=== PATIENT | female | born 2000 | race Two or more races ===

== ENCOUNTER 2021-06-01 18:32 | Emergency (ER) | payer MEDICAID, OTHER ==
[~2021-06-01] VITALS: Ht 147.3 cm; Wt 46.7 kg
[2021-06-01 19:03] LABS: Urine Bacteria FEW /hpf (None Seen); Urine Blood 3+ /uL (Negative); Urine Specific Gravity 1.009 (1.001-1.035); Urine WBC 10 /hpf (0 - 5)
[2021-06-01 19:40] LABS: Alcohol, Urine < 3.0 mg/dL (0-10); Amphetamine Screen, Urine NEGATIVE (NEGATIVE); Barbiturate Scree,Urine NEGATIVE (NEGATIVE); Benzodiazephine Screen, Urine NEGATIVE (NEGATIVE); Cannabinoid Screen, Urine NEGATIVE (NEGATIVE); Cocaine Screen, Urine NEGATIVE (NEGATIVE); Opiate Scree,Urine NEGATIVE (NEGATIVE); Phencyclidine Screen, Urine NEGATIVE (NEGATIVE)
[2021-06-01] MEDS ORDERED: ALPRAZolam 0.25 MG TAB PO ONE (20:30)
[2021-06-01 20:51] VITALS: BP 105/55
== END 2021-06-01 20:53 | disposition home or self-care (01) ==
LOC: ER 18:36
DX: F41.0 Panic disorder [episodic paroxysmal anxiety] (principal); F41.8 Other specified anxiety disorders
CPT/HCPCS: 80307; 81001